=== PATIENT | female | born 1995 | race Caucasian/White ===

== ENCOUNTER 2020-10-03 06:53 | Emergency (ER) | payer BC, SELFPAY ==
[2020-10-03 07:21] VITALS: BP 129/90; PULSE 93; RESP 16; TEMP 37.3; O2SAT 100; BMI 37.8
== END 2020-10-03 09:26 | disposition left against medical advice (07) ==
PROVIDERS: Emergency Provider Emergency Medicine
DX: R25.1 Tremor, unspecified (principal); R11.10 Vomiting, unspecified
CPT/HCPCS: 99282